=== PATIENT | male | born 1950 | race Caucasian/White ===

== ENCOUNTER 2016-12-03 07:28 | Observation (INO) | payer OTHER, BC ==
[~2016-12-03] VITALS: Ht 172.7 cm; Wt 80.5 kg
[~2016-12-03 07:28] MED LIST: LOSARTAN-HCTZ1 EAC1 PO; PROMETHAZINE HC25 M1 PO
[2016-12-03 08:04] LABS: HEMATOCRIT 42.6 % (38.0-50.0); MCV 85.9 FL (86-99); MEAN PLAT.VOLUME 8.9 uM^3 (9.0-12.4); PLATELET COUNT 235 K/uL (156-360); RBC DIS.WIDTH-CV 13.5 % (11.8-14.6); RED BLOOD COUNT 4.96 M/uL (4.00-5.50); WHITE BLOOD COUNT 14.5 K/uL (4.1-10.2)
[2016-12-03 08:16] LABS: CHLORIDE 100 mEq/L (99-109); POTASSIUM 3.7 mEq/L (3.7-5.4); SODIUM 137 mEq/L (136-147)
[2016-12-03 08:18] LABS: GLUCOSE 132 mg/dL (70-99)
[2016-12-03 08:20] LABS: ANION GAP 11 MEQ/L (2-14)
[2016-12-03 08:22] LABS: GFR ESTIMATE (CALCULATED) > 59 mL/min/
[2016-12-03 08:23] LABS: UREA NITROGEN (BUN) 15 mg/dL (9-23)
[2016-12-03 08:48] LABS: TROP-I INTERPRETATION NEGATIVE; TROPONIN-I < 0.01 ng/mL (0.0-0.30)
[2016-12-03 10:25] LABS: INFLUENZA A VIRAL ANTIGEN NEGATIVE; INFLUENZA B VIRAL ANTIGEN NEGATIVE
[2016-12-03] MEDS ORDERED: NORVASC10 MG PO (11:04)
[2016-12-03] MEDS ORDERED: RED YEAST RICE600 M1 PO (11:04)
[2016-12-03] MEDS ORDERED: LO-DOSE ASPIRIN81 M2 PO (11:05)
[2016-12-03] MEDS ORDERED: CO Q-10100 MG PO (11:05)
[2016-12-03 11:20] LABS: ADD MIUA? YES; BILIRUBIN NEGATIVE; BLOOD MODERATE; COLOR YELLOW ((YELLOW)); GLUCOSE (STRIP) NEGATIVE; KETONES 20; LEUKOCYTES NEGATIVE; NITRITE NEGATIVE; PROTEIN (STRIP) 30; SPECIFIC GRAVITY 1.019 (1.000-1.030); UROBILINOGEN 0.2 MG/DL (0.2-1.0)
[2016-12-03 11:25] LABS: BACTERIA NONE SEEN /HPF; EPITHELIAL CELLS RARE /HPF; GRANULAR CASTS 0-5 /LPF; MUCUS 2+ /LPF; RED BLOOD CELLS 20-30 /HPF (0-5); UCUL ADDED? NO; WHITE BLOOD CELLS 0-5 /HPF (0-5)
[2016-12-03 11:35] LABS: ABS NEUTROPHIL COUNT 12.5; EOSINOPHIL ABS CT 0
[2016-12-03 12:51] VITALS: BP 128/68
[2016-12-03 15:29] LABS: TROP-I INTERPRETATION NEGATIVE; TROPONIN-I < 0.01 ng/mL (0.0-0.30)
[2016-12-03 16:04] VITALS: BP 120/71
[2016-12-03 19:30] VITALS: BP 152/79
[2016-12-03 21:22] LABS: TROP-I INTERPRETATION NEGATIVE; TROPONIN-I < 0.01 ng/mL (0.0-0.30)
[2016-12-04 00:03] VITALS: BP 138/69
[2016-12-04 03:54] VITALS: BP 149/72
[2016-12-04 07:42] LABS: HEMATOCRIT 39.2 % (38.0-50.0); MCH 29.8 PG (29.0-34.0); MCHC 34.9 G/DL (30.0-36.0); MCV 85.4 FL (86-99); PLATELET COUNT 218 K/uL (156-360); RBC DIS.WIDTH-CV 13.6 % (11.8-14.6); RBC DIS.WIDTH-SD 42.2 % (39-53); RED BLOOD COUNT 4.59 M/uL (4.00-5.50)
[2016-12-04 07:43] LABS: WHITE BLOOD COUNT 10.1 K/uL (4.1-10.2)
[2016-12-04 09:33] VITALS: BP 159/74
[2016-12-04 11:19] VITALS: BP 146/81
[2016-12-04 14:35] LABS: APPEARANCE CLEAR/COLORLESS; RED CELL AREA COUNTED 18; RED CELL COUNT 5 /MM^3 (0-1); RED CELL DILUTION 1; WBC AREA COUNTED 8; WBC DILUTION 1; WHITE CELL COUNT 241 /MM^3 (0-5); WHITE CELL RAW COUNT 193
[2016-12-04 14:38] LABS: CSF EOSINOPHILS 1 % (0-25); MONO RAW COUNT 97; MONONUCLEAR WBC'S 97 % (50-90); POLY RAW COUNT 2; POLYNUCLEAR WBC'S 2 % (0-3)
== END 2016-12-04 15:56 | disposition home or self-care (01) ==
LOC: EME → EDBD 07:28 → EDOF 09:41 → 5WEST 12:37
PROVIDERS: Emergency Medicine; Internal Medicine; Radiology Diagnostic Radiology
DX: A87.9 Viral meningitis, unspecified (principal); R55 Syncope and collapse; R11.10 Vomiting, unspecified; R19.7 Diarrhea, unspecified; I10 Essential (primary) hypertension
CPT/HCPCS: 62270; 70450; 71020; 77003; 80048; 81003; 82945; 83605; 84157; 84443; 84484; 85007; 85027; 87040; 87205; 87502; 89051; 93005; 93880; 99281; 99285; G0378; J1650; J2405; J7030